=== PATIENT | female | born 1975 | race Two or more races ===

== ENCOUNTER 2017-04-10 22:02 | Emergency (ER) | payer MEDICAID ==
[~2017-04-10] VITALS: Ht 162.6 cm; Wt 108.0 kg
[2017-04-10] MEDS ORDERED: NKM (22:14)
[2017-04-10] MEDS ORDERED: Ketorolac 30mg Inj IV ONE (22:30)
[2017-04-10 22:35] VITALS: BP 154/77
[2017-04-10 22:36] LABS: APPEARANCE,URINE SLIGHTLY CLOUDY; KETONES,URINE NEGATIVE (NEGATIVE); LEUKOCYTE ESTERASE ,URINE 3+ (NEGATIVE); NITRITE,URINE NEGATIVE (NEGATIVE); PH,URINE 5 (4.5-8.0); PROTEIN,URINE NEGATIVE (NEGATIVE); UROBILINOGEN,URINE NORMAL MG/DL (0.0-1.0)
[2017-04-10 22:43] LABS: WBC,URINE TNTC /HPF (0 - 2)
[2017-04-10 22:44] LABS: BACTERIA,URINE MODERATE /HPF; SQUAMOUS EPITHELIAL CELL,UR MODERATE /LPF (NONE/OCC)
[2017-04-10 23:12] LABS: EOSINOPHILS % (AUTO) 2.8 % (0.0-3.0); LYMPHOCYTES % (AUTO) 35.1 % (20.0-45.0); MEAN CORPUSCULAR HGB CONC 34.3 G/DL (32.0-36.0); MEAN CORPUSCULAR VOLUME 90 FL (80-99); MEAN PLATELET VOLUME 7.2 FL (6.5-10.1); NEUTROPHILS % (AUTO) 55.1 % (45.0-75.0); PLATELET COUNT 369 K/UL (150-450); RED BLOOD COUNT 4.13 M/UL (4.20-5.40); RED CELL DISTRIBUTION WIDTH 12.3 % (11.6-14.8); WHITE BLOOD COUNT 8.1 K/UL (4.8-10.8)
[2017-04-10] MEDS ORDERED: Morphine Sulfate 4mg/ml Inj IVP ONE (23:30)
[2017-04-10] MEDS ORDERED: cefTRIAXone 1 GM in NS 55 ML IVPB ONE (23:30)
[2017-04-10 23:33] LABS: ANION GAP 16 (5-15); CALCIUM 9.3 mg/dL (8.6-10.2); CARBON DIOXIDE 23 mEQ/L (20-30); CHLORIDE 102 mEQ/L (98-107); CREATININE 0.8 mg/dL (0.5-0.9); GLOMERULAR FILTRATION RATE > 60 mL/min (>60); HEMOLYSIS 3; SODIUM 141 mEQ/L (135-145)
--- NOTE | 2017-04-10 23:41 | Emergency Room Report ---
History of Present Illness General Chief Complaint: Headache Source: Patient Present Illness HPI Is a 41-year-old female with no past medical history. She presents with chief complaint of left-sided headache for the last 4-5 days. Now with numbness to right facial area. No nausea no vomiting. No photophobia. No edema good headache. No focal deficit. [id number]-ijewduv medication not helping. Allergies: Coded Allergies: No Known Allergies (Unverified , 04/10/17) Patient History Past Medical History: none, see triage record, old chart reviewed Past Surgical History: none Pertinent Family History: none Social History: Denies: smoking Last Menstrual Period: 1 week ago Now: No Immunizations: other Reviewed Nursing Documentation: PMH: Agreed, PSxH: Agreed Nursing Documentation-PMH Past Medical History: No Stated History Review of Systems Eye: Denies: blurred vision, eye pain ENT: Denies: ear pain, nose congestion, throat swelling Respiratory: Denies: cough, shortness of breath Cardiovascular: Denies: chest pain, palpitations Gastrointestinal: Denies: abdominal pain, diarrhea, nausea, vomiting Musculoskeletal: Denies: back pain, joint pain Skin: Denies: rash Neurological: Reports: headache, Denies: numbness Endocrine: Denies: increased thirst, increased urine Hematologic/Lymphatic: Denies: easy bruising All Other Systems: negative except mentioned in HPI Physical Exam Vital Signs Date Time Temp Pulse Resp B/P Pulse Ox O2 Delivery O2 Flow Rate FiO2 04/10/17 22:05 98.1 91 18 174/108 98 Room Air vitals with hypertension Sp02 EP Interpretation: reviewed, normal General Appearance: well appearing, no apparent distress, alert Head: normocephalic, atraumatic Eyes: bilateral eye EOMI, bilateral eye PERRL, bilateral eye other - Funduscopic exam no papilledema ENT: hearing grossly normal, normal pharynx Neck: full range of motion, supple, no meningismus Respiratory: chest non-tender, lungs clear, normal breath sounds Cardiovascular #1: regular rate, rhythm, no murmur Gastrointestinal: normal bowel sounds, non tender, no mass, no organomegaly, no bruit, non-distended Musculoskeletal: back normal, gait/station normal, normal range of motion Psychiatric: mood/affect normal Skin: warm/dry Medical Decision Making Diagnostic Impression: Primary Impression: Headache Qualified Codes: R51 - Headache Additional Impression: UTI (urinary tract infection) ER Course Patient presents with headache. No evidence of TIA or CVA. No evidence of bleed. Clinically, no evidence of pseudotumor cerebri. She felt better now. Blood pressure normalized. CT done because this is her first major headache and she has some neurological complaints. We'll discharge home. Lab Results Impression labs normal Rhythm Strip Diag. Results Rhythm Strip Time: 23:41 EP Interpretation: yes Rate: 67 Rhythm: NSR CT/MRI/US Diagnostic Results CT/MRI/US Diagnostic Results : Imaging Test Ordered: CT head Impression negative per radiologist Last Vital Signs Date Time Temp Pulse Resp B/P Pulse Ox O2 Delivery O2 Flow Rate FiO2 04/10/17 23:21 98.1 04/10/17 22:35 71 14 154/77 100 Room Air Status: improved Disposition: HOME, SELF-CARE Condition: Stable Scripts Cephalexin* (KEFLEX*) 500 Mg Capsule 500 MG ORAL TID, #21 CAP 0 Refills Prov: MORRIS MOSER M.D. 04/11/17 Hydrocodone/Acetaminophen 5-325* (HYDROCODONE/ACETAMINOPHEN 5-325*) 1 Each Tablet 1 TAB ORAL Q6H Y for For Pain, #15 TAB 0 Refills Prov: MORRIS MOSER M.D. 04/11/17 Referrals: NOT CHOSEN IPA/,REFERRING (PCP) Patient Instructions: General Headache Without Cause Additional Instructions: followup with your DrMaria Isabel in 7 days. Return if symptom worsen. MORRIS MOSER M.D. Apr 10, 2017 23:41
[2017-04-11] MEDS ORDERED: HYDROCODON-ACE1 EA15 ORAL (00:08)
[2017-04-11] MEDS ORDERED: KEFLEX500 MG ORAL (00:08)
[2017-04-11 00:09] VITALS: BP 114/61
[2017-04-11 01:00] VITALS: BP 114/61
--- NOTE | 2017-04-11 10:52 | Diagnostic Imaging Report ---
Indication: Headache Technique: Contiguous 5 mm thick transaxial imaging of the head obtained in a Siemens Sensation [address] scanner. Soft tissue and bone windows generated. Total Dose length Product (DLP): [address] Dose Index Volume (CTDIvol): 70.38 mGy Comparison: none Findings: The size and configuration of the cortical sulci, basal cisterns, and ventricles are within normal limits for age. There is no mass effect, midline shift, or edema identified. There is no evidence of acute hemorrhage or abnormal intra-axial or extra-axial fluid collections. The bones and soft tissues are unremarkable. Impression: No mass effect, edema or acute bleed. The CT scanner at [facility] is accredited by the [employer] and the scans are performed using dose optimization techniques as appropriate to a performed exam including Automatic Exposure control.
== END 2017-04-11 01:00 | disposition home or self-care (01) ==
LOC: EMR 22:20
DX: R51 Headache (principal); N39.0 Urinary tract infection, site not specified
CPT/HCPCS: 36415; 70450; 80048; 81001; 81025; 85025; 87086; 96374; 96375; 99284; J0696; J1885; J2270; J2405

== ENCOUNTER 2017-04-20 20:26 | Inpatient (IN) | payer MEDICAID ==
[~2017-04-20] VITALS: Ht 162.6 cm; Wt 106.1 kg
[~2017-04-20 20:26] MED LIST: HYDROCODON-ACE1 EA15 ORAL; KEFLEX500 MG ORAL; NKM
[2017-04-20] MEDS ORDERED: NKM (20:35)
--- NOTE | 2017-04-20 20:54 | Emergency Room Report ---
History of Present Illness General Chief Complaint: Abdominal Pain Source: Patient Present Illness HPI Patient presents with right upper quadrant pain. This began 20 minutes before presenting here. She's never had this pain before. It's 10/10 and constant. It radiates toward her back. She denies any vomiting or nausea. Denies any change in her bowels. She denies fever, upper respiratory symptoms, cough, pleuritic chest pain. No known family history of gall stones or renal stones. Allergies: Coded Allergies: No Known Allergies (Unverified , 04/10/17) Patient History Past Medical History: see triage record Social History: Denies: smoking Social History Narrative Reviewed Nursing Documentation: PMH: Agreed, PSxH: Agreed Nursing Documentation-PMH Past Medical History: No Stated History Review of Systems All Other Systems: negative except mentioned in HPI Physical Exam Vital Signs Date Time Temp Pulse Resp B/P Pulse Ox O2 Delivery O2 Flow Rate FiO2 04/20/17 20:31 98.2 142 22 150/103 95 Room Air Sp02 EP Interpretation: reviewed, normal General Appearance: well appearing, GCS 15, mild distress Head: normocephalic Eyes: bilateral eye PERRL, bilateral eye normal inspection ENT: moist mucus membranes Neck: supple Respiratory: lungs clear, normal breath sounds Cardiovascular #1: regular rate, rhythm Cardiovascular #2: 2+ radial (R) Gastrointestinal: normal inspection, normal bowel sounds, no mass, non- distended, no rebound, guarding, tenderness - Upper quadrant, overweight Musculoskeletal: back normal, gait/station normal, normal range of motion Neurologic: alert, oriented x3, grossly normal Psychiatric: mood/affect normal - but in pain Skin: normal inspection, warm/dry Medical Decision Making Diagnostic Impression: Primary Impression: Cholecystitis ER Course The patient presents with severe right upper quadrant pain. She had this pain before. Differential includes gallstones, ulcer, gastritis, pancreatitis amongst others. She's in distress at this time and needs a emergent evaluation. This will be undertaken with labs and ultrasound. In addition she' ll be treated with IV hydration and analgesia. After the first dose of morphine her pain decreased to 7. The second dose was given. Labs are significant for leukocytosis. Ultrasound shows gallstones. Antibiotics are begun. After the second dose of morphine she says the pain is down to 5 hours she still has guarding without rebound or. The patient is to be at admitted for observation and possible surgery. Dr. Burrell was contacted and agreed to consult. Admit med Dr. Vee. Laboratory Tests Test 04/20/17 20:51 04/20/17 21:05 Urine Color Pale yellow Urine Appearance Clear Urine pH 5 (4.5-8.0) Urine Specific [place] 1.015 (1.005-1.035) Urine Protein Negative (NEGATIVE) Urine Glucose (UA) Negative (NEGATIVE) Urine Ketones Negative (NEGATIVE) Urine Occult Blood 3+ (NEGATIVE) H Urine Nitrite Negative (NEGATIVE) Urine Bilirubin Negative (NEGATIVE) Urine Urobilinogen Normal MG/DL (0.0-1.0) Urine Leukocyte Esterase 2+ (NEGATIVE) H Urine RBC 0-2 /HPF (0 - 2) Urine WBC 0-2 /HPF (0 - 2) Urine Squamous Epithelial Cells Moderate /LPF (NONE/OCC) H Urine Bacteria Few /HPF (NONE) Urine HCG, Qualitative Negative White Blood Count 14.4 K/UL (4.8-10.8) H Red Blood Count 4.71 M/UL (4.20-5.40) Hemoglobin 14.4 G/DL (12.0-16.0) Hematocrit 42.3 % (37.0-47.0) Mean Corpuscular Volume 90 FL (80-99) Mean Corpuscular Hemoglobin 30.6 PG (27.0-31.0) Mean Corpuscular Hemoglobin Concent 34.0 G/DL (32.0-36.0) Red Cell Distribution Width 11.9 % (11.6-14.8) Platelet Count 397 K/UL (150-450) Mean Platelet Volume 7.6 FL (6.5-10.1) Neutrophils (%) (Auto) 59.5 % (45.0-75.0) Lymphocytes (%) (Auto) 33.2 % (20.0-45.0) Monocytes (%) (Auto) 4.8 % (1.0-10.0) Eosinophils (%) (Auto) 1.7 % (0.0-3.0) Basophils (%) (Auto) 0.8 % (0.0-2.0) Prothrombin Time 9.5 SEC (9.30-11.50) Prothrombin Time INR 0.9 (0.9-1.1) PTT 26 SEC (23-33) Sodium Level 139 mEQ/L (135-145) Potassium Level 3.6 mEQ/L (3.4-4.9) Chloride Level 102 mEQ/L (98-107) Carbon Dioxide Level 23 mEQ/L (20-30) Anion Gap 14 (5-15) Blood Urea Nitrogen 10 mg/dL (7-23) Creatinine 0.9 mg/dL (0.5-0.9) Estimate Glomerular Filtration Rate > 60 mL/min (>60) Glucose Level 123 mg/dL (74-106) H Calcium Level 9.3 mg/dL (8.6-10.2) Total Bilirubin 0.2 mg/dL (0.0-1.2) Aspartate Amino Transferase (AST) 17 U/L (5-40) Alanine Aminotransferase (ALT) 17 U/L (3-33) Alkaline Phosphatase 78 U/L (35-104) Total Protein 7.8 g/dL (6.6-8.7) Albumin 4.4 g/dL (3.5-5.2) Globulin 3.4 g/dL Albumin/Globulin Ratio 1.2 (1.0-2.7) Lipase 28 U/L (< 60) CT/MRI/US Diagnostic Results CT/MRI/US Diagnostic Results : Imaging Test Ordered: u/s abdomen Impression gallstones Status: improved Disposition: ADMITTED INPATIENT Condition: Serious Quinn Dodson M.D. Apr 20, 2017 20:54
[2017-04-20] MEDS ORDERED: Morphine Sulfate 4mg/ml Inj IVP ONE ×2 (21:00→21:45)
[2017-04-20 21:11] VITALS: BP 150/101
[2017-04-20 21:27] LABS: BASOPHILS % (AUTO) 0.8 % (0.0-2.0); EOSINOPHILS % (AUTO) 1.7 % (0.0-3.0); LYMPHOCYTES % (AUTO) 33.2 % (20.0-45.0); MEAN CORPUSCULAR HEMOGLOBIN 30.6 PG (27.0-31.0); MEAN CORPUSCULAR VOLUME 90 FL (80-99); MEAN PLATELET VOLUME 7.6 FL (6.5-10.1); MONOCYTES % (AUTO) 4.8 % (1.0-10.0); NEUTROPHILS % (AUTO) 59.5 % (45.0-75.0); PLATELET COUNT 397 K/UL (150-450); RED BLOOD COUNT 4.71 M/UL (4.20-5.40); RED CELL DISTRIBUTION WIDTH 11.9 % (11.6-14.8); WHITE BLOOD COUNT 14.4 K/UL (4.8-10.8)
[2017-04-20 21:32] LABS: APPEARANCE,URINE CLEAR; KETONES,URINE NEGATIVE (NEGATIVE); LEUKOCYTE ESTERASE ,URINE 2+ (NEGATIVE); NITRITE,URINE NEGATIVE (NEGATIVE); PH,URINE 5 (4.5-8.0); PROTEIN,URINE NEGATIVE (NEGATIVE); UROBILINOGEN,URINE NORMAL MG/DL (0.0-1.0)
[2017-04-20 21:41] LABS: BACTERIA,URINE FEW /HPF; RBC,URINE 0-2 /HPF (0 - 2); SQUAMOUS EPITHELIAL CELL,UR MODERATE /LPF (NONE/OCC); WBC,URINE 0-2 /HPF (0 - 2)
[2017-04-20 21:45] LABS: INR 0.9 (0.9-1.1); PROTHROMBIN TIME 9.5 SEC (9.30-11.50)
[2017-04-20 22:06] LABS: ALANINE AMINOTRANSFERASE 17 U/L (3-33); ALBUMIN/GLOBULIN RATIO 1.2 (1.0-2.7); ANION GAP 14 (5-15); ASPARTATE AMINO TRANSFERASE 17 U/L (5-40); CALCIUM 9.3 mg/dL (8.6-10.2); CARBON DIOXIDE 23 mEQ/L (20-30); CHLORIDE 102 mEQ/L (98-107); CREATININE 0.9 mg/dL (0.5-0.9); GLOMERULAR FILTRATION RATE > 60 mL/min (>60); HEMOLYSIS 3; LIPASE 28 U/L (< 60); POTASSIUM 3.6 mEQ/L (3.4-4.9); SODIUM 139 mEQ/L (135-145); TOTAL PROTEIN 7.8 g/dL (6.6-8.7)
[2017-04-20 22:26] VITALS: BP 128/68
[2017-04-20] MEDS ORDERED: Cefepime 1gm vial ONE (22:51)
[2017-04-20] MEDS ORDERED: metroNIDAZOLE 500mg 100 ML IVPB ONE (23:00)
[2017-04-20] MEDS ORDERED: Cefepime HCl 1 GM in D5W 55 ML IVPB ONE (23:00)
[2017-04-20 23:26] VITALS: BP 118/64
[2017-04-21 00:21] VITALS: BP 112/64
[2017-04-21] MEDS ORDERED: Acetaminophen 650 MG SUPP RECTAL PRN (00:45)
[2017-04-21] MEDS: Morphine Sulfate 4mg/ml Inj IVP PRN ×2 (01:48→07:54)
[2017-04-21 04:00] VITALS: BP 128/67
[2017-04-21 08:00] VITALS: BP 144/39
--- NOTE | 2017-04-21 09:15 | Diagnostic Imaging Report ---
Indication: Right upper quadrant pain Technique: Ultrasound of the abdomen. Comparison: None Findings: The pancreas is incompletely visualized. Visualized portions are unremarkable. Liver measures 17.3 cm with slight increased echogenicity. No focal liver lesions are identified. Visualized portions of the main portal vein and the hepatic veins are grossly unremarkable although incompletely evaluated. Gallbladder sludge and stones are seen. Gallbladder wall thickness is within normal limits. Sonographic Rebolledo's is positive. Common bile duct measures 6 mm. Bilateral kidneys demonstrate normal echogenicity. No focal renal lesions are seen. There is no hydronephrosis. No echogenic renal stones are identified. The spleen is normal in size and echogenicity. The visualized aorta is normal in caliber. Visualized portions of the inferior vena cava are unremarkable. Impression: Technically limited examination. Multiple gallstones and gallbladder sludge with positive sonographic Rebolledo sign. No gallbladder wall thickening or pericholecystic fluid. Clinical correlation recommended for cholecystitis. HIDA scan may be obtained for further evaluation as indicated. Mild hepatomegaly with increased echogenicity suggestive of fatty infiltration/hepatocellular disease. Clinical correlation recommended.
[2017-04-21 09:16] LABS: ALANINE AMINOTRANSFERASE 13 U/L (3-33); ALBUMIN/GLOBULIN RATIO 1.2 (1.0-2.7); ANION GAP 10 (5-15); ASPARTATE AMINO TRANSFERASE 12 U/L (5-40); CALCIUM 8.5 mg/dL (8.6-10.2); CARBON DIOXIDE 22 mEQ/L (20-30); CHLORIDE 107 mEQ/L (98-107); CREATININE 0.7 mg/dL (0.5-0.9); GLOMERULAR FILTRATION RATE > 60 mL/min (>60); HEMOLYSIS 2; POTASSIUM 4.2 mEQ/L (3.4-4.9); SODIUM 139 mEQ/L (135-145); TOTAL PROTEIN 6.3 g/dL (6.6-8.7)
[2017-04-21 09:26] LABS: BASOPHILS % (AUTO) 0.8 % (0.0-2.0); EOSINOPHILS % (AUTO) 2.1 % (0.0-3.0); LYMPHOCYTES % (AUTO) 29.5 % (20.0-45.0); MEAN CORPUSCULAR HEMOGLOBIN 31.1 PG (27.0-31.0); MEAN CORPUSCULAR VOLUME 89 FL (80-99); MEAN PLATELET VOLUME 7.7 FL (6.5-10.1); MONOCYTES % (AUTO) 7.4 % (1.0-10.0); NEUTROPHILS % (AUTO) 60.2 % (45.0-75.0); PLATELET COUNT 318 K/UL (150-450); RED CELL DISTRIBUTION WIDTH 11.9 % (11.6-14.8); WHITE BLOOD COUNT 9.6 K/UL (4.8-10.8)
--- NOTE | 2017-04-21 09:30 | History & Physical ---
History and Physical History & Physicial Patient presents with right upper quadrant pain and underwent an ultrasound with notable stones. She notes acute abdominal pain. It radiates toward her back. She denies any vomiting or nausea. Denies any change in her bowels. She denies fever, or diarrhea PMH negative MEDS/ALLERGIES noted ROS noted PHYSICAL WDWN NAD clear breath sounds bilaterally without rhonchi or wheeze [id number] without MRG tender RUQ no CCE nonfocal Laboratory Tests Test 04/20/17 20:51 04/20/17 21:05 04/21/17 08:10 Urine Color Pale yellow Urine Appearance Clear Urine pH 5 (4.5-8.0) Urine Specific [place] 1.015 (1.005-1.035) Urine Protein Negative (NEGATIVE) Urine Glucose (UA) Negative (NEGATIVE) Urine Ketones Negative (NEGATIVE) Urine Occult Blood 3+ (NEGATIVE) H Urine Nitrite Negative (NEGATIVE) Urine Bilirubin Negative (NEGATIVE) Urine Urobilinogen Normal MG/DL (0.0-1.0) Urine Leukocyte Esterase 2+ (NEGATIVE) H Urine RBC 0-2 /HPF (0 - 2) Urine WBC 0-2 /HPF (0 - 2) Urine Squamous Epithelial Cells Moderate /LPF (NONE/OCC) H Urine Bacteria Few /HPF (NONE) Urine HCG, Qualitative Negative White Blood Count 14.4 K/UL (4.8-10.8) H 9.6 K/UL (4.8-10.8) Red Blood Count 4.71 M/UL (4.20-5.40) 4.00 M/UL (4.20-5.40) L Hemoglobin 14.4 G/DL (12.0-16.0) 12.4 G/DL (12.0-16.0) Hematocrit 42.3 % (37.0-47.0) 35.5 % (37.0-47.0) L Mean Corpuscular Volume 90 FL (80-99) 89 FL (80-99) Mean Corpuscular Hemoglobin 30.6 PG (27.0-31.0) 31.1 PG (27.0-31.0) H Mean Corpuscular Hemoglobin Concent 34.0 G/DL (32.0-36.0) 35.0 G/DL (32.0-36.0) Red Cell Distribution Width 11.9 % (11.6-14.8) 11.9 % (11.6-14.8) Platelet Count 397 K/UL (150-450) 318 K/UL (150-450) Mean Platelet Volume 7.6 FL (6.5-10.1) 7.7 FL (6.5-10.1) Neutrophils (%) (Auto) 59.5 % (45.0-75.0) 60.2 % (45.0-75.0) Lymphocytes (%) (Auto) 33.2 % (20.0-45.0) 29.5 % (20.0-45.0) Monocytes (%) (Auto) 4.8 % (1.0-10.0) 7.4 % (1.0-10.0) Eosinophils (%) (Auto) 1.7 % (0.0-3.0) 2.1 % (0.0-3.0) Basophils (%) (Auto) 0.8 % (0.0-2.0) 0.8 % (0.0-2.0) Prothrombin Time 9.5 SEC (9.30-11.50) Prothromb Time International Ratio 0.9 (0.9-1.1) Activated Partial Thromboplast Time 26 SEC (23-33) Sodium Level 139 mEQ/L (135-145) 139 mEQ/L (135-145) Potassium Level 3.6 mEQ/L (3.4-4.9) 4.2 mEQ/L (3.4-4.9) Chloride Level 102 mEQ/L (98-107) 107 mEQ/L (98-107) Carbon Dioxide Level 23 mEQ/L (20-30) 22 mEQ/L (20-30) Anion Gap 14 (5-15) 10 (5-15) Blood Urea Nitrogen 10 mg/dL (7-23) 9 mg/dL (7-23) Creatinine 0.9 mg/dL (0.5-0.9) 0.7 mg/dL (0.5-0.9) Estimat Glomerular Filtration Rate > 60 mL/min (>60) > 60 mL/min (>60) Glucose Level 123 mg/dL (74-106) H 100 mg/dL (74-106) Calcium Level 9.3 mg/dL (8.6-10.2) 8.5 mg/dL (8.6-10.2) L Total Bilirubin 0.2 mg/dL (0.0-1.2) < 0.2 mg/dL (0.0-1.2) Aspartate Amino Transf (AST/SGOT) 17 U/L (5-40) 12 U/L (5-40) Alanine Aminotransferase (ALT/SGPT) 17 U/L (3-33) 13 U/L (3-33) Alkaline Phosphatase 78 U/L (35-104) 66 U/L (35-104) Total Protein 7.8 g/dL (6.6-8.7) 6.3 g/dL (6.6-8.7) L Albumin 4.4 g/dL (3.5-5.2) 3.5 g/dL (3.5-5.2) Globulin 3.4 g/dL 2.8 g/dL Albumin/Globulin Ratio 1.2 (1.0-2.7) 1.2 (1.0-2.7) Lipase 28 U/L (< 60) IMPRESSION gallstones possible cholecystitis abdominal pain PLAN NPO surgical evaluation IV hydration IV antibiotics HOSEA Wang Apr 21, 2017 09:30
[2017-04-21] MEDS: Pantoprazole Inj IVP SCH (10:52)
[2017-04-21 12:00] VITALS: BP 154/78
--- NOTE | 2017-04-21 12:04 | General Progress Note ---
Progress Note Progress Note Chart reviewed,pt examined. Impression: abdominal pain, cholelithiasis, possible cholecystitis vs biliary colic. We will order a stat HIDA scan. Tylor Burrell MD Apr 21, 2017 12:04
[2017-04-21] MEDS: Piperacillin/Tazobactam 3.375 GM in D5W 110 ML IVPB SCH ×2 (14:25→21:58)
[2017-04-21 16:00] VITALS: BP 144/83
--- NOTE | 2017-04-21 17:15 | Consultation ---
DATE OF CONSULTATION: 04/21/2017 SURGICAL CONSULTATION REASON FOR CONSULTATION: Abdominal pain, cholelithiasis. HISTORY OF PRESENT ILLNESS: This 41-year-old 1 para 1 female developed the onset of severe right upper abdominal pain yesterday. The pain was accompanied by anorexia. The pain radiated towards the back. There are no symptoms of nausea or vomiting. She denied any problems with diarrhea. She had a normal stool yesterday at noon. PAST MEDICAL HISTORY: Previous surgeries, section five years ago. MEDICATIONS: None. ALLERGIES: None known. SOCIAL HISTORY: Tobacco, none. Alcohol, none. Occupation, the patient is currently unemployed. 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 FAMILY HISTORY: Negative for diabetes, heart disease, or malignancy. REVIEW OF SYSTEMS: Essentially negative. She has occasional headaches. PHYSICAL EXAMINATION: GENERAL: The patient is an obese female, complaining of abdominal pain. VITAL SIGNS: Temperature 98.1 degrees, blood pressure 128/67, pulse 68, and respirations 19. HEENT: Normocephalic. Pupils are equal and reactive to light. There was no scleral icterus. NECK: Supple without adenopathy. LUNGS: Clear. HEART: Regular rhythm. ABDOMEN: Abdomen was protuberant. There is some tenderness with guarding in the right upper quadrant. There were no palpable masses. There is a healed Pfannenstiel scar. EXTREMITIES: No clubbing, cyanosis, or edema. LABORATORY AND DIAGNOSTIC DATA: CBC today shows a white blood count of 9600, hemoglobin 12.4 grams percent, hematocrit 35.5% and platelet count 318,000. Clinical chemistry showed a sodium of 139, potassium 4.2, chloride 107, bicarbonate 22, BUN 9, creatinine 0.7, and glucose 100. Liver panel shows a total bilirubin of less than 0.02. Normal SGOT at 13, normal SGPT of 12 and normal alkaline phosphatase of 66. Lipase was normal at 28 yesterday. An abdominal ultrasound showed gallbladder sludge and stones. The gallbladder wall was within normal limits. The common duct measures 6 mm. IMPRESSION: Cholelithiasis, probable biliary colic. PLAN: We will need to obtain a HIDA scan to see if the cystic duct is obstructed. We will leave her NPO today and continue on IV hydration. We will switch her analgesics from morphine to Dilaudid 2 mg q.3 h. Tylor Burrell M.D. DR: BUDDY JOB#: [id number] CC:
[2017-04-21 21:00] VITALS: BP 137/82
[2017-04-22 04:00] VITALS: BP 137/84
[2017-04-22] MEDS: Piperacillin/Tazobactam 3.375 GM in D5W 110 ML IVPB SCH (05:01)
[2017-04-22] MEDS: Pantoprazole Inj IVP SCH (08:17)
[2017-04-22 08:30] VITALS: BP 125/72
--- NOTE | 2017-04-22 09:49 | Diagnostic Imaging Report ---
Indication: Right upper quadrant pain Technique: HIDA scan was performed with 5.8 mCi of technetium 99M Choletec. Planar imaging was performed for 90 minutes. Findings: Liver uptake is demonstrated. Radiotracer is seen within the bile ducts by 10 minutes and within the gallbladder by 13 minutes. Small bowel activity is also present. Impression: Gallbladder uptake suggestive of cystic duct patency and no definitive evidence of acute cholecystitis.
--- NOTE | 2017-04-22 11:35 | General Progress Note ---
Assessment/Plan Assessment/Plan IMPRESSION gallstones no cholecystitis abdominal pain PLAN clears dc antibiotics d/w surgery, dc home with outpatient follow up for elective concepción bland diet discussed Subjective Allergies: Coded Allergies: No Known Allergies (Unverified , 04/10/17) Subjective improved d/w surgery cleared for dc Objective Last 24 Hour Vital Signs Date Time Temp Pulse Resp B/P Pulse Ox O2 Delivery O2 Flow Rate FiO2 04/22/17 08:30 98.2 80 20 125/72 96 Room Air 04/22/17 06:32 98.1 04/22/17 04:00 98.1 75 18 137/84 96 Room Air 04/21/17 21:00 97.5 77 18 137/82 97 Room Air 04/21/17 16:00 97.9 93 20 144/83 96 Room Air 04/21/17 12:00 98.6 91 20 154/78 97 Room Air Intake and Output 04/21/17 04/22/17 19:00 07:00 Intake Total 765.0 ml Balance 765.0 ml Intake Oral 0 ml IV Total 765.0 ml # Voids 2 3 Height (Feet): 5 Height (Inches): 4.00 Weight (Pounds): 234 Objective WDWN NAD clear breath sounds bilaterally without rhonchi or wheeze [id number] without MRG NABS minimal tenderness RUQ no CCE nonfocal HOSEA DEL TORO Apr 22, 2017 11:35
[2017-04-22] MEDS ORDERED: Norco 5mg/325mg tab ORAL PRN (11:45)
[2017-04-22 12:00] VITALS: BP 120/63
[2017-04-22] MEDS ORDERED: NORCO 5-325 TA1 EAC1 ORAL (12:03)
[2017-04-22] MEDS ORDERED: BENTYL10 MG ORAL (12:04)
--- NOTE | 2017-04-22 12:08 | General Progress Note ---
Progress Note Progress Note Afebrile. Pt is feeling better, denies N or V. Abdomen is soft. The HIDA scan did visualize the gallbladder. Her clinical course is consistent with biliary colic. We will try a low fat diet and Bentyl. We will discharge her today. Pt was told to adhere to a low fat diet and to consult her PMD for referral to a surgeon to begin the process of obtaining a TAR for a cholecystectomy. Tylor Burrell MD Apr 22, 2017 12:08
--- NOTE | 2017-04-23 13:48 | Discharge Summary ---
Discharge Summary Hospital Course Date of Admission Apr 20, 2017 at 23:02 Date of Discharge Apr 22, 2017 at 15:20 Admitting Diagnosis cholecystitis HPI Luda Fraire is a 41 year old female who was admitted on Apr 20, 2017 at 23:02 for Cholecystitis Hospital Course dc summary #[id number] Discharge Medications Continued Medications: Dicyclomine Hcl* (Bentyl*) 10 Mg Capsule 10 MG ORAL FOUR TIMES A DAY, #40 CAP Hydrocodone Bit/Acetaminophen 5-325* ([place] 5-325 Tablet*) 1 Each Tablet 1 TAB ORAL Q4H PRN for For Pain, #40 TAB Discontinued Medications: Cephalexin* (Keflex*) 500 Mg Capsule 500 MG ORAL TID, #21 CAP 0 Refills Hydrocodone/Acetaminophen 5-325* (Hydrocodone/Acetaminophen 5-325*) 1 Each Tablet 1 TAB ORAL Q6H PRN for For Pain, #15 TAB 0 Refills Discharge Condition Upon Discharge: stable Discharge Disposition Patient was discharged to Home (01) Discharge Diagnoses: Discharge Instructions Discharge Instructions Special Instructions I have been assigned to complete a D/C Summary on this account. I was not involved in the patient management Ana España NP (Vanchtein) Apr 23, 2017 13:48
--- NOTE | 2017-04-24 00:01 | Discharge Summary 2 SIG ---
DATE OF ADMISSION: 04/20/2017 DATE OF DISCHARGE: 04/22/2017 REASON FOR ADMISSION: 41-year-old female presented to emergency room with complaint of right upper quadrant pain. The pain was 10/10, constant with radiation to the back. She denied vomiting or nausea. She denied any change in her bowel movement. She denied fever, chills, cough, or pleuritic chest pain. No known history of gallstone or renal stones in the past. Workup in the emergency room revealed that the patient was afebrile, tachycardic with heart rate -142, tachypneic with respiratory rate - 22 and blood pressure - 150/103. WBC - 14.4. Urinalysis revealed no pyuria and few bacteria and +2 leukocyte esterase. Lipase -28. LFT within normal limits. Abdominal ultrasound revealed multiply gallstones and gallbladder sludge with positive sonographic Rebolledo sign. No gallbladder wall thickening or pericholecystic fluid noted. In the emergency department, the patient was started on IV fluids and empiric antibiotics. The patient was admitted for further management to rule out acute cholecystitis.. ADMITTING DIAGNOSES: 1. Gallstones, 2. Possible acute cholecystitis versus biliary colic. 3. Abdominal pain. HOSPITAL STAY: The patient was admitted. The patient was kept NPO. The patient was started on IV fluids and empiric antibiotics. Surgery evaluation was requested. Pain management was provided. HIDA scan was ordered. Antiemetic provided as needed. HIDA scan subsequently was done the next day and revealed patent cystic duct. No evidence of acute cholecystitis. Surgery closely followed the patient. According to the Surgeon, the patient had biliary colic. The patient will need an elective cholecystectomy as an outpatient. This information was explained in detail to the patient by the surgeon . The patient was started on clear liquid diet. Patient was able to tolerate diet. Pain was addressed, managed and controlled. Leukocytosis resolved the next day. Laboratory work was stable. Blood pressure normalized as pain was controlled. The patient was stable for discharge home and follow up with the Surgeon for outpatient elective surgery. DISCHARGE DIAGNOSES: 1. Cholelithiasis. 2. Biliary colic. 3. Abdominal pain ( due to biliary colic). DISCHARGE MEDICATIONS: See medication reconciliation list. DISCHARGE INSTRUCTIONS: The patient was discharged home. Follow up with Surgeon for outpatient elective cholecystectomy. Yunier Vee M.D. I have been assigned to dictate discharge summary on this account and I was not involved in the patient's management. Ana España (Vanchtein) N.PMaria Isabel DR: LEBRON JOB#: [id number] CC: JEAN
== END 2017-04-22 15:20 | disposition home or self-care (01) ==
LOC: EMR 20:50 → 3E 23:02 → EDBEDREQ 23:24
DX: K80.70 Calculus of gallbladder and bile duct without cholecystitis without obstruction (principal); Z68.41 Body mass index [BMI] 40.0-44.9, adult; E66.9 Obesity, unspecified
CPT/HCPCS: 36415; 76700; 78266; 80053; 81003; 81025; 83690; 85025; 85610; 85730; J2405

== ENCOUNTER 2019-12-07 17:49 | Emergency (ER) | payer MEDICAID ==
[~2019-12-07] VITALS: Ht 162.6 cm; Wt 86.2 kg
[~2019-12-07 17:49] MED LIST changes: +AUGMENTIN 875-1 EAC1 ORAL; +BENTYL10 MG ORAL; +NORCO 5-325 TA1 EAC1 ORAL; +ONDANSETRON ODT4 MG BC
[2019-12-07] MEDS ORDERED: DOCUSATE SODIU100 M2 ORAL (17:59)
[2019-12-07] MEDS ORDERED: ACETAMINOPHEN-1 EAC1 ORAL (17:59)
[2019-12-07 18:05] VITALS: BP 157/57
--- NOTE | 2019-12-07 18:05 | NUR ---
ED Nurse Note: Pt from home walked in due to lower abd. pain with nausea since yesterday. Denies diarrhea or constipation. Last BM was yesterday.States pain is localized. AAO x4, ambulatory with non labored breathing.
[2019-12-07] MEDS ORDERED: Omnipaque-300 100ml vial INJ PRN (18:15)
--- NOTE | 2019-12-07 18:17 | Emergency Room Report ---
History of Present Illness General Chief Complaint: Abdominal Pain Source: Patient Present Illness HPI 44-year-old female history of gallbladder surgery presents with lower abdominal pain x1 day, no aggravating leaving factors severity is moderate, constant she feels a dull ache in the lower abdomen, no diarrhea she endorses nausea no vomiting no fevers no chills no chest pain or shortness of breath patient presents for evaluation Allergies: Coded Allergies: No Known Allergies (Unverified , 04/10/17) Patient History Past Medical History: see triage record Reviewed Nursing Documentation: PMH: Agreed; PSxH: Agreed Nursing Documentation-PMH Past Medical History: No Stated History Review of Systems All Other Systems: negative except mentioned in HPI Physical Exam Vital Signs Date Time Temp Pulse Resp B/P (MAP) Pulse Ox O2 Delivery O2 Flow Rate FiO2 12/07/19 17:55 98.1 83 16 158/83 (108) 98 Room Air Sp02 EP Interpretation: reviewed, normal General Appearance: well appearing, no apparent distress, alert Head: normocephalic, atraumatic Eyes: bilateral eye PERRL, bilateral eye EOMI ENT: uvula midline, moist mucus membranes Neck: supple, thyroid normal, supple/symm/no masses Respiratory: lungs clear, no respiratory distress, no retraction, no accessory muscle use Cardiovascular #1: normal peripheral pulses, regular rate, rhythm, no edema, no gallop, no murmur Gastrointestinal: soft, no guarding, no rebound, tenderness - Lower abdomen Musculoskeletal: normal inspection Neurologic: alert, oriented x3 Psychiatric: mood/affect normal Skin: no rash, warm/dry Medical Decision Making Diagnostic Impression: Primary Impression: Urinary tract infection Qualified Codes: N30.01 - Acute cystitis with hematuria ER Course 44-year-old female presents with lower suprapubic pain differential diagnosis includes UTI, diverticulitis, appendicitis, We will obtain labs, CT scan CT scan shows distended distended bladder without any acute pathology patient with positive UA patient given ceftriaxone Patient given strict return precautions follow-up with PCP will provide antibiotics as an outpatient Laboratory Tests Test 12/07/19 18:30 White Blood Count 11.0 K/UL (4.8-10.8) H Red Blood Count 4.44 M/UL (4.20-5.40) Hemoglobin 13.3 G/DL (12.0-16.0) Hematocrit 38.4 % (37.0-47.0) Mean Corpuscular Volume 86 FL (80-99) Mean Corpuscular Hemoglobin 30.0 PG (27.0-31.0) Mean Corpuscular Hemoglobin Concent 34.8 G/DL (32.0-36.0) Red Cell Distribution Width 12.3 % (11.6-14.8) Platelet Count 419 K/UL (150-450) Mean Platelet Volume 6.2 FL (6.5-10.1) L Neutrophils (%) (Auto) 66.0 % (45.0-75.0) Lymphocytes (%) (Auto) 27.9 % (20.0-45.0) Monocytes (%) (Auto) 4.1 % (1.0-10.0) Eosinophils (%) (Auto) 1.3 % (0.0-3.0) Basophils (%) (Auto) 0.7 % (0.0-2.0) Urine Color Pale yellow Urine Appearance Slightly cloudy Urine pH 7 (4.5-8.0) Urine Specific [place] 1.015 (1.005-1.035) Urine Protein Negative (NEGATIVE) Urine Glucose (UA) Negative (NEGATIVE) Urine Ketones Negative (NEGATIVE) Urine Blood 5+ (NEGATIVE) H Urine Nitrite Negative (NEGATIVE) Urine Bilirubin Negative (NEGATIVE) Urine Urobilinogen Normal MG/DL (0.0-1.0) Urine Leukocyte Esterase Negative (NEGATIVE) Urine RBC 20-30 /HPF (0 - 2) H Urine WBC 0-2 /HPF (0 - 2) Urine Squamous Epithelial Cells Many /LPF (NONE/OCC) H Urine Bacteria Moderate /HPF (NONE) H Urine HCG, Qualitative Negative (NEGATIVE) Sodium Level 145 MMOL/L (136-145) Potassium Level 3.8 MMOL/L (3.5-5.1) Chloride Level 105 MMOL/L (98-107) Carbon Dioxide Level 25 MMOL/L (21-32) Anion Gap 15 mmol/L (5-15) Blood Urea Nitrogen 13 mg/dL (7-18) Creatinine 0.8 MG/DL (0.55-1.30) Estimate Glomerular Filtration Rate > 60 mL/min (>60) Glucose Level 104 MG/DL (74-106) Calcium Level 9.5 MG/DL (8.5-10.1) Total Bilirubin 0.2 MG/DL (0.2-1.0) Aspartate Amino Transferase (AST) 18 U/L (15-37) Alanine Aminotransferase (ALT) 34 U/L (12-78) Alkaline Phosphatase 82 U/L (46-116) Troponin I 0.005 ng/mL (0.000-0.056) Total Protein 7.8 G/DL (6.4-8.2) Albumin 3.9 G/DL (3.4-5.0) Globulin 3.9 g/dL Albumin/Globulin Ratio 1.0 (1.0-2.7) Lipase 99 U/L (73-393) EKG Diagnostic Results EKG Time: 18:12 EP Interpretation: NSR, rate 84, QTc 444, no acute ST elevations, normal axis Rhythm Strip Diag. Results Rhythm Strip Time: 18:19 EP Interpretation: yes Rate: 86 Rhythm: NSR, no PVC's, no ectopy CT/MRI/US Diagnostic Results CT/MRI/US Diagnostic Results : Impression Procedure: CT Abdomen Pelvis w/Contrast CT ABDOMEN + PELVIS With Contrast: Status post cholecystectomy. Normal appendix. Distended urinary bladder IUD within the uterine cavity. Physiologic bilateral ovarian cysts L5-S1 vacuum disc phenomena and L5 limbus vertebral body.45 Dictated By: Daisy Meza M.D. Electronically Signed By: Signed Date/Time CC: Last Vital Signs Date Time Temp Pulse Resp B/P (MAP) Pulse Ox O2 Delivery O2 Flow Rate FiO2 12/07/19 17:55 98.1 83 16 158/83 (108) 98 Room Air Disposition: HOME, SELF-CARE Condition: Stable Scripts Cephalexin* (KEFLEX*) 500 Mg Tablet 500 MG ORAL EVERY 6 HOURS, #20 CAP Prov: Severo Weiner MD 12/07/19 Referrals: [facility]. [facility] Patient Instructions: Urinary Tract Infection, [id number] Additional Instructions: The patient was provided with discharge instructions, notified to follow-up with a primary care doctor and or specialist in the next 24-48 hours, and to return to the ED if they have worsening of their symptoms. Please note that this report is being documented using [employer] technology. This can lead to erroneous entry secondary to incorrect interpretation by the dictating instrument. Severo Weiner MD 1, 2020 18:17
[2019-12-07] MEDS ORDERED: Morphine Sulfate 4mg/ml Inj (IV USE ONLY) IVP ONE (18:30)
--- NOTE | 2019-12-07 18:35 | NUR ---
ED Nurse Note: Collected blood and urine specimen then sent to lab.
[2019-12-07 18:59] LABS: BASOPHILS % (AUTO) 0.7 % (0.0-2.0); EOSINOPHILS % (AUTO) 1.3 % (0.0-3.0); HEMATOCRIT 38.4 % (37.0-47.0); HEMOGLOBIN 13.3 G/DL (12.0-16.0); LYMPHOCYTES % (AUTO) 27.9 % (20.0-45.0); MEAN CORPUSCULAR VOLUME 86 FL (80-99); MONOCYTES % (AUTO) 4.1 % (1.0-10.0); PLATELET COUNT 419 K/UL (150-450); RED BLOOD COUNT 4.44 M/UL (4.20-5.40); RED CELL DISTRIBUTION WIDTH 12.3 % (11.6-14.8)
[2019-12-07 19:03] LABS: APPEARANCE,URINE SLIGHTLY CLOUDY; BILIRUBIN, URINE NEGATIVE (NEGATIVE); COLOR,URINE PALE YELLOW; GLUCOSE, URINE (UA) NEGATIVE (NEGATIVE); KETONES,URINE NEGATIVE (NEGATIVE); LEUKOCYTE ESTERASE ,URINE NEGATIVE (NEGATIVE); NITRITE,URINE NEGATIVE (NEGATIVE); PH,URINE 7 (4.5-8.0); PROTEIN,URINE NEGATIVE (NEGATIVE); UROBILINOGEN,URINE NORMAL MG/DL (0.0-1.0)
--- NOTE | 2019-12-07 19:04 | NUR ---
HAND-OFF: Report given to Lety GAN.
--- NOTE | 2019-12-07 19:05 | NUR ---
ED Nurse Note: Received report from Aislinn GAN. Pt alert na oriented, verbally responsive. Not in any distress.
[2019-12-07 19:16] LABS: ALANINE AMINOTRANSFERASE 34 U/L (12-78); ALBUMIN 3.9 G/DL (3.4-5.0); ALKALINE PHOSPHATASE 82 U/L (46-116); ANION GAP 15 mmol/L (5-15); ASPARTATE AMINO TRANSFERASE 18 U/L (15-37); BILIRUBIN,TOTAL 0.2 MG/DL (0.2-1.0); BLOOD UREA NITROGEN 13 mg/dL (7-18); CALCIUM 9.5 MG/DL (8.5-10.1); CARBON DIOXIDE 25 MMOL/L (21-32); CHLORIDE 105 MMOL/L (98-107); CREATININE 0.8 MG/DL (0.55-1.30); POTASSIUM 3.8 MMOL/L (3.5-5.1); SODIUM 145 MMOL/L (136-145)
--- NOTE | 2019-12-07 19:27 | NUR ---
ED Nurse Note: Pt was taken for CT via wc, accompanied by a tech.
[2019-12-07] MEDS ORDERED: cefTRIAXone 1 GM in NS 55 ML IVPB ONE (19:30)
--- NOTE | 2019-12-07 19:38 | NUR ---
ED Nurse Note: Pt came back from CT, not in any distress.
--- NOTE | 2019-12-07 20:00 | Diagnostic Imaging Report ---
INDICATION: Abdominal pain TECHNIQUE: Continuous helical transaxial imaging of the abdomen and pelvis was obtained from the lung bases to the pubic symphysis during intravenous contrast administration. Coronal 2-D reformats were also obtained. Study obtained in a Siemens sensation [address] Automatic Exposure Control was utilized. Total Dose length Product (DLP): 608.[address] Dose Index Volume (CTDIvol): 10.4 mGy COMPARISON: None FINDINGS: Lungs: Minimal posterior basal atelectasis demonstrated. Small hiatal hernia noted.. Liver: Unremarkable Gallbladder/biliary system: Gallbladder is absent. Cholecystectomy clips noted. No biliary ductal dilatation is seen.. Spleen: Unremarkable Pancreas: Unremarkable Kidneys/Bladder: There is mild pelvocaliectasis. This may be due to distended urinary bladder. No stones are identified within the kidneys or urinary tract.. Adrenal glands: Unremarkable Aorta/IVC: Unremarkable Bowel: Bowel gas pattern is nonobstructive. Appendix is not seen but there are no secondary signs of appendicitis identified. Few diverticula noted in the sigmoid colon. Peritoneum: There is no free fluid. An IUD is noted within the uterus. Bones: Vacuum phenomenon narrowing of L5-S1 disc demonstrated. Hypertrophied facets demonstrated within the lower lumbar spine. IMPRESSION: No acute findings. Mildly distended urinary bladder. Status post cholecystectomy. IUD Degenerative changes of the lumbar spine The CT scanner at [facility] is accredited by the [employer] and the scans are performed using dose optimization techniques as appropriate to a performed exam including Automatic Exposure control.
[2019-12-07] MEDS ORDERED: CEPHALEXIN500 M1 ORAL (20:07)
[2019-12-07 20:13] VITALS: BP 145/76
--- NOTE | 2019-12-07 20:13 | NUR ---
ED Nurse Note: Pt cleared by ERMD for discharge. DC instructions/prescription was given and explained to pt and daughter verbalized understanding of teachings. All medical deviecs such as ID band and IV line removed. Pt is AAO x4, ambulatory and left with all personal belongings. Accompanie dby daughter and son going home.
== END 2019-12-07 20:13 | disposition home or self-care (01) ==
LOC: EMR 19:53
DX: N30.01 Acute cystitis with hematuria (principal); Z90.49 Acquired absence of other specified parts of digestive tract; N83.202 Unspecified ovarian cyst, left side; N83.201 Unspecified ovarian cyst, right side
CPT/HCPCS: 36415; 74177; 80053; 81003; 81025; 83690; 84484; 85025; 87086; 93005; 96361; 96365; 96375; J0696; J2270; J2405; J7030; Q9967; Z7502; 99284

== ENCOUNTER 2019-12-10 09:46 | Emergency (ER) | payer MEDICAID ==
[~2019-12-10] VITALS: Ht 162.6 cm; Wt 89.8 kg
[~2019-12-10 09:46] MED LIST changes: +ACETAMINOPHEN-1 EAC1 ORAL; +CEPHALEXIN500 M1 ORAL; +DOCUSATE SODIU100 M2 ORAL
[2019-12-10 10:18] VITALS: BP 144/83
--- NOTE | 2019-12-10 10:21 | NUR ---
ED Nurse Note: Patient walked in to ER with a niece from home due to Rt lower abdominal pain 10/10 since last night. pt reported having Diverticulitis in history. pt aao x4 and ambulatory. skin clean and intact. calm but gramicing for pain. no cardiac or pulmonary distress noted at this time. pt is in gown. pt also reported having N/V at home but not at this moment.
[2019-12-10 10:35] LABS: APPEARANCE,URINE SLIGHTLY CLOUDY; BILIRUBIN, URINE NEGATIVE (NEGATIVE); COLOR,URINE PALE YELLOW; GLUCOSE, URINE (UA) NEGATIVE (NEGATIVE); KETONES,URINE NEGATIVE (NEGATIVE); LEUKOCYTE ESTERASE ,URINE 2+ (NEGATIVE); NITRITE,URINE NEGATIVE (NEGATIVE); PH,URINE 8 (4.5-8.0); PROTEIN,URINE NEGATIVE (NEGATIVE); UROBILINOGEN,URINE NORMAL MG/DL (0.0-1.0)
[2019-12-10 10:47] LABS: ANION GAP 13 mmol/L (5-15); BLOOD UREA NITROGEN 10 mg/dL (7-18); CARBON DIOXIDE 25 MMOL/L (21-32); CHLORIDE 104 MMOL/L (98-107); CREATININE 0.6 MG/DL (0.55-1.30); POTASSIUM 4.9 MMOL/L (3.5-5.1); SODIUM 142 MMOL/L (136-145)
[2019-12-10 10:51] LABS: ALANINE AMINOTRANSFERASE 53 U/L (12-78); ALBUMIN 3.8 G/DL (3.4-5.0); ALBUMIN/GLOBULIN RATIO 0.9 (1.0-2.7); ALKALINE PHOSPHATASE 80 U/L (46-116); ASPARTATE AMINO TRANSFERASE 63 U/L (15-37); BILIRUBIN,TOTAL 0.4 MG/DL (0.2-1.0)
[2019-12-10 11:03] LABS: BASOPHILS % (AUTO) 0.9 % (0.0-2.0); EOSINOPHILS % (AUTO) 1.4 % (0.0-3.0); HEMATOCRIT 38.1 % (37.0-47.0); HEMOGLOBIN 13.3 G/DL (12.0-16.0); LYMPHOCYTES % (AUTO) 29.3 % (20.0-45.0); MEAN CORPUSCULAR VOLUME 85 FL (80-99); NEUTROPHILS % (AUTO) 63.4 % (45.0-75.0); PLATELET COUNT 398 K/UL (150-450); RED BLOOD COUNT 4.46 M/UL (4.20-5.40); WHITE BLOOD COUNT 8.7 K/UL (4.8-10.8)
--- NOTE | 2019-12-10 11:55 | Emergency Room Report ---
History of Present Illness General Chief Complaint: Abdominal Pain Source: Patient Present Illness HPI Patient is a 44-year-old female past medical history of diverticulitis who presents to the ER complaining of abdominal pain for the past several days. She is accompanied by her daughter. Patient denies any fever or chills. She denies any dysuria or hematuria. She denies any diarrhea but complains of constipation for the past 5 days. She denies any recent travel. She denies any chest pain or shortness of breath. Allergies: Coded Allergies: No Known Allergies (Unverified , 04/10/17) Patient History Social History: Denies: smoking, alcohol use, drug use Now: No Reviewed Nursing Documentation: PMH: Agreed; PSxH: Agreed Nursing Documentation-PMH Past Medical History: No Stated History Review of Systems All Other Systems: negative except mentioned in HPI Physical Exam Vital Signs Date Time Temp Pulse Resp B/P (MAP) Pulse Ox O2 Delivery O2 Flow Rate FiO2 12/10/19 09:51 98.1 69 18 144/83 (103) 99 Room Air Sp02 EP Interpretation: reviewed, normal General Appearance: no apparent distress, alert, GCS 15, non-toxic Head: normocephalic, atraumatic Eyes: bilateral eye normal inspection, bilateral eye PERRL ENT: hearing grossly normal, normal pharynx, no angioedema, normal voice Neck: full range of motion, supple/symm/no masses Respiratory: chest non-tender, lungs clear, normal breath sounds, speaking full sentences Cardiovascular #1: regular rate, rhythm, no edema Gastrointestinal: normal bowel sounds, soft, non-distended, no guarding, no rebound, other - Right lower quadrant tenderness to palpation with no guarding or rebound Rectal: deferred Genitourinary: normal inspection, no CVA tenderness Musculoskeletal: back normal, normal range of motion, calf tenderness, gait/ station normal, non-tender Neurologic: alert, motor strength/tone normal, oriented x3, sensory intact, responsive, speech normal Psychiatric: judgement/insight normal, memory normal, mood/affect normal, no suicidal/homicidal ideation Skin: no rash Lymphatic: no adenopathy Medical Decision Making Diagnostic Impression: Primary Impression: Abdominal pain Additional Impression: UTI (urinary tract infection) ER Course Patient's labs demonstrate UTI. Patient is afebrile, nontoxic-appearing and has normal white blood cell count. CT demonstrates no acute intra-abdominal pathology. Patient started on Macrobid. After discussing risks and benefits of further diagnostics, treatment plans, as well as indications for and risks of admission, the patient is agreeable to being discharged home. I have explained that their evaluation and treatment in the emergency department today is an important step towards them achieving better health but that their evaluation today is not intended to replace further evaluation and treatment by a physician in their local clinic. I have explained that while the current findings suggest no immediate life threatening emergency they will require further evaluation and treatment by a physician of their choice in their area. They understand that it will be necessary for them to review the final reports of their ED visit with their clinic physician. We have reviewed indications for return to the Emergency Department. I have explained that additional time may need to pass and/or additional testing as an outpatient may be necessary before a definitive diagnosis can be made. They tell me they are willing to follow up as instructed within the timeframe I recommend. They appear to understand what we discussed. Additionally they understand that if they are unable to be seen by an outpatient physician they are welcome, and in fact should, return to the Emergency Department for a repeat evaluation. The patient is stable at time of discharge. Last Vital Signs Date Time Temp Pulse Resp B/P (MAP) Pulse Ox O2 Delivery O2 Flow Rate FiO2 12/10/19 10:18 98.1 69 18 144/83 99 Room Air Disposition: HOME, SELF-CARE Condition: Stable Scripts Ondansetron* (ZOFRAN*) 4 Mg Tablet 4 MG ORAL Q6H PRN for Nausea & Vomiting, #10 TAB Prov: Karol Wayne M.D. 12/10/19 Docusate Sodium* (COLACE*) 100 Mg Capsule 100 MG ORAL DAILY for 30 Days, CAP Prov: Karol Wayne M.D. 12/10/19 Nitrofurantoin Monohyd/M-Cryst* (MACROBID 100 MG*) 100 Mg Capsule 100 MG ORAL EVERY 12 HOURS for 7 Days, CAP Prov: Karol Wayne M.D. 12/10/19 Additional Instructions: Patient discharged in stable improved condition with outpatient follow-up and strict return precautions Karol Wayne M.D. Dec 10, 2019 11:55
--- NOTE | 2019-12-10 12:02 | NUR ---
ED Nurse Note: Called radiology and they said they will be here shortly to take pt to CT
--- NOTE | 2019-12-10 12:16 | NUR ---
ED Nurse Note: Pt in radiology
--- NOTE | 2019-12-10 12:53 | Diagnostic Imaging Report ---
INDICATION: Abdominal pain TECHNIQUE: Continuous helical transaxial imaging of the abdomen and pelvis was obtained from the lung bases to the pubic symphysis. No intravenous contrast was administered. Coronal 2-D reformats were also obtained. Automatic Exposure Control was utilized. Total Dose length Product (DLP): 537.[address] Dose Index Volume (CTDIvol): 9.9 mGy Comparison: 12/07/2019 FINDINGS: Patient had a CT 3 days ago which was negative for any acute findings. Lungs: The visualized lung bases are clear. Liver: Unremarkable. On today's examination, there is interposition of bowel between the liver and anterior part of the diaphragm, which is a normal variant. Gallbladder/biliary system: Cholecystectomy noted. Spleen: Unremarkable Pancreas: Unremarkable Kidneys/Bladder: There is a questionable 1 mm nonobstructive stone in the left kidney. There is no hydronephrosis. This is difficult to see on the last study which was done with intravenous contrast material.. Adrenal glands: Unremarkable Bowel: Appendix is normal. Bowel gas pattern is nonobstructive. Aorta/IVC: Unremarkable Peritoneum: IUD noted within the uterus. There is no free fluid within the abdomen or pelvis.. Bones: Degenerative changes at L5-S1 again noted. IMPRESSION: Question of a tiny nonobstructive stone in the left kidney. Correlate clinically. Post cholecystectomy IUD Degenerative changes of the spine. Normal appendix Chilaiditi syndrome Note: Evaluation of solid organs is limited on non contrast imaging. The CT scanner at [facility] is accredited by the [employer] and the scans are performed using dose optimization techniques as appropriate to a performed exam including Automatic Exposure control.
[2019-12-10] MEDS ORDERED: ZOFRAN4 M3 ORAL (13:23)
[2019-12-10] MEDS ORDERED: COLACE100 MG ORAL (13:23)
[2019-12-10] MEDS ORDERED: NITROFURANTOIN100 M2 ORAL (13:23)
[2019-12-10 13:36] VITALS: BP 139/82
--- NOTE | 2019-12-10 13:37 | NUR ---
ER DISCHARGE NOTE: Patient is cleared to be discharged per ERMD DR WILLSON, pt is aox4, on room air, with stable vital signs. pt was given dc and prescription instructions, pt was able to verbalize understanding, pt id band and iv site removed without complications. pt is able to ambulate with steady gait. pt took all belongings.
== END 2019-12-10 13:36 | disposition home or self-care (01) ==
LOC: EMR 10:10
DX: R10.9 Unspecified abdominal pain (principal); N39.0 Urinary tract infection, site not specified
CPT/HCPCS: 36415; 74176; 80053; 81003; 81025; 83690; 83735; 85025; 96360; 96361; J7030; Z7502; 99284

== ENCOUNTER 2019-12-30 19:47 | Emergency (ER) | payer MEDICAID ==
[~2019-12-30] VITALS: Ht 162.6 cm; Wt 88.0 kg
[~2019-12-30 19:47] MED LIST changes: +COLACE100 MG ORAL; +NITROFURANTOIN100 M2 ORAL; +ZOFRAN4 M3 ORAL
[2019-12-30 20:00] VITALS: BP 159/92
--- NOTE | 2019-12-30 20:00 | NUR ---
ED Nurse Note: Pt walkd into ED for c/o pubic pain onset three days ago. Pt states pain is aching in nature and non radiating. Pt also had 1x episode of vomiting today. Pt is aaox4, no respiratory or cardiac distress noted. Pt placed on diagnostic cardiac sonographer and put into gown. Will continue to monitor.
[2019-12-30] MEDS ORDERED: Morphine Sulfate 4mg/ml Inj (IV USE ONLY) IVP ONE (20:15)
--- NOTE | 2019-12-30 20:36 | Emergency Room Report ---
History of Present Illness General Chief Complaint: Abdominal Pain Source: Patient Present Illness HPI 44-year-old female presents ED for evaluation. Planing of abdominal pain for the last 3 days. Pain is lower, sharp, 8 out of 10, nonradiating. Notes nausea and vomiting today. Denies fevers or chills. Denies diarrhea. Denies sick contacts or recent travel. No other aggravating relieving factors. Denies any other associated symptoms Allergies: Coded Allergies: No Known Allergies (Unverified , 04/10/17) COVID-19 Screening Contact w/high risk pt: No Recent Travel to affected area: No Experienced COVID-19 symptoms?: No Patient History Past Medical History: none Past Surgical History: none Pertinent Family History: none Social History: Denies: smoking, alcohol use, drug use Last Menstrual Period: 12/13/19 Now: No Immunizations: UTD Reviewed Nursing Documentation: PMH: Agreed; PSxH: Agreed Nursing Documentation-PMH Past Medical History: No Stated History Review of Systems All Other Systems: negative except mentioned in HPI Physical Exam Vital Signs Date Time Temp Pulse Resp B/P (MAP) Pulse Ox O2 Delivery O2 Flow Rate FiO2 12/30/19 19:55 98.2 93 19 159/92 (114) 96 Sp02 EP Interpretation: reviewed, normal General Appearance: alert, GCS 15, non-toxic, mild distress Head: normocephalic, atraumatic Eyes: bilateral eye normal inspection, bilateral eye PERRL ENT: hearing grossly normal, normal pharynx, no angioedema, normal voice Neck: full range of motion, supple/symm/no masses Respiratory: chest non-tender, lungs clear, normal breath sounds, speaking full sentences Cardiovascular #1: regular rate, rhythm, no edema Cardiovascular #2: 2+ carotid (R), 2+ carotid (L), 2+ radial (R), 2+ radial (L) , 2+ dorsalis pedis (R), 2+ dorsalis pedis (L) Gastrointestinal: normal bowel sounds, soft, non-distended, no guarding, no rebound, tenderness - suprapubic Rectal: deferred Genitourinary: normal inspection, no CVA tenderness Musculoskeletal: back normal, normal range of motion, gait/station normal, non- tender Neurologic: alert, motor strength/tone normal, oriented x3, sensory intact, responsive, speech normal Psychiatric: judgement/insight normal, memory normal, mood/affect normal, no suicidal/homicidal ideation Reflexes: 3+ bicep (R), 3+ bicep (L), 3+ tricep (R), 3+ tricep (L), 3+ knee (R) , 3+ knee (L) Skin: no rash Lymphatic: no adenopathy Medical Decision Making Diagnostic Impression: Primary Impression: UTI (urinary tract infection) Qualified Codes: N39.0 - Urinary tract infection, site not specified; R31.9 - Hematuria, unspecified Additional Impression: Abdominal pain Qualified Codes: R10.9 - Unspecified abdominal pain ER Course Hospital Course 44 yo F presents with lower abd pain Differential diagnosis includes- cystitis, UTI, ovarian cyst, torsion Clinical course Patient placed on stretcher. After initial history and physical I ordered labs , IV fluids, pain medications and Pelvic US Labs - no leukocytosis, electrolytes ok, LFTs normal, UA + bacteria Pelvic US - no acute pathology I discussed findings with patient. On reassessment pain improved. Given antibiotics. Safe for discharge with close outpatient follow-up. states she has a PMD I feel this is a highly complex case requiring extensive working including EKG/ Rhythm strip, Xray/CT/US, Blood/urine lab work, repeat exams while in ED, and administration of strong opiates/narcotics for pain control, admission to hospital or close patient follow up. Diagnosis - UTI, abdominal pain Stable and discharged to home with Rx Motrin, Keflex, Zofran, Pyridium. Followup with PMD. Return to ED if symptoms recur or worsen Labs Test 12/30/19 20:20 White Blood Count 11.3 K/UL (4.8-10.8) Red Blood Count 4.29 M/UL (4.20-5.40) Hemoglobin 12.6 G/DL (12.0-16.0) Hematocrit 37.7 % (37.0-47.0) Mean Corpuscular Volume 88 FL (80-99) Mean Corpuscular Hemoglobin 29.3 PG (27.0-31.0) Mean Corpuscular Hemoglobin Concent 33.3 G/DL (32.0-36.0) Red Cell Distribution Width 13.1 % (11.6-14.8) Platelet Count 379 K/UL (150-450) Mean Platelet Volume 7.3 FL (6.5-10.1) Neutrophils (%) (Auto) 60.1 % (45.0-75.0) Lymphocytes (%) (Auto) 32.4 % (20.0-45.0) Monocytes (%) (Auto) 4.9 % (1.0-10.0) Eosinophils (%) (Auto) 1.5 % (0.0-3.0) Basophils (%) (Auto) 1.0 % (0.0-2.0) Urine Color Pale yellow Urine Appearance Slightly cloudy Urine pH 6 (4.5-8.0) Urine Specific [place] 1.020 (1.005-1.035) Urine Protein Negative (NEGATIVE) Urine Glucose (UA) Negative (NEGATIVE) Urine Ketones Negative (NEGATIVE) Urine Blood 4+ (NEGATIVE) Urine Nitrite Negative (NEGATIVE) Urine Bilirubin Negative (NEGATIVE) Urine Urobilinogen Normal MG/DL (0.0-1.0) Urine Leukocyte Esterase 2+ (NEGATIVE) Urine RBC 5-10 /HPF (0 - 2) Urine WBC 10-15 /HPF (0 - 2) Urine Squamous Epithelial Cells Many /LPF (NONE/OCC) Urine Bacteria Moderate /HPF (NONE) Urine HCG, Qualitative Negative (NEGATIVE) Sodium Level 139 MMOL/L (136-145) Potassium Level 4.0 MMOL/L (3.5-5.1) Chloride Level 105 MMOL/L (98-107) Carbon Dioxide Level 24 MMOL/L (21-32) Anion Gap 11 mmol/L (5-15) Blood Urea Nitrogen 16 mg/dL (7-18) Creatinine 0.8 MG/DL (0.55-1.30) Estimat Glomerular Filtration Rate > 60 mL/min (>60) Glucose Level 104 MG/DL (74-106) Calcium Level 9.1 MG/DL (8.5-10.1) Total Bilirubin 0.2 MG/DL (0.2-1.0) Aspartate Amino Transf (AST/SGOT) 33 U/L (15-37) Alanine Aminotransferase (ALT/SGPT) 69 U/L (12-78) Alkaline Phosphatase 78 U/L (46-116) Total Protein 7.1 G/DL (6.4-8.2) Albumin 3.7 G/DL (3.4-5.0) Globulin 3.4 g/dL Albumin/Globulin Ratio 1.1 (1.0-2.7) Lipase 116 U/L (73-393) CT/MRI/US Diagnostic Results CT/MRI/US Diagnostic Results : Imaging Test Ordered: Pelvic US Impression Procedure: US Transvaginal (Non ) Indication:Lower abdominal and pelvic pain Technique: Grayscale and duplex Doppler imaging of the pelvis performed utilizing a transabdominal and endovaginal scan. Comparison: None Findings: The size, contour, and configuration of the uterus is within normal limits. Endometrium is partially obscured by intrauterine device. The ovaries appear normal bilaterally with good dopplerable blood flow. Some follicles noted. There is no significant free fluid identified. Uterus measurement 9.2 x 5.5 x 4.7 cm. Right ovary 3.7 x 3.3 x 1.6 cm. Left ovary 3.8 x 3 x 2.3 cm. IMPRESSION: Intrauterine device. No acute findings. Last Vital Signs Date Time Temp Pulse Resp B/P (MAP) Pulse Ox O2 Delivery O2 Flow Rate FiO2 12/30/19 19:55 98.2 93 19 159/92 (114) 96 Status: improved Disposition: HOME, SELF-CARE Condition: Stable Scripts Ondansetron Odt* (ZOFRAN ODT*) 4 Mg Tab.rapdis 4 MG BC EVERY 6 HOURS PRN for Nausea & Vomiting, #10 TAB 0 Refills Prov: Tj Wolf MD 12/30/19 Acetaminophen* (TYLENOL EXTRA STRENGTH*) 500 Mg Tablet 500 MG ORAL Q8H PRN for Prn Headache/Temp > 101, #30 TAB 0 Refills Prov: Tj Wolf MD 12/30/19 Phenazopyridine Hcl* (PYRIDIUM*) 100 Mg Tablet 100 MG ORAL THREE TIMES A DAY for 3 Days, TAB Prov: Tj Wolf MD 12/30/19 Cephalexin* (KEFLEX*) 500 Mg Capsule 500 MG ORAL EVERY 6 HOURS for 7 Days, CAP Prov: Tj Wolf MD 12/30/19 Referrals: NON PHYSICIAN (PCP) Tj Wolf MD Dec 30, 2019 20:36
[2019-12-30 20:48] LABS: EOSINOPHILS % (AUTO) 1.5 % (0.0-3.0); HEMATOCRIT 37.7 % (37.0-47.0); HEMOGLOBIN 12.6 G/DL (12.0-16.0); LYMPHOCYTES % (AUTO) 32.4 % (20.0-45.0); MEAN CORPUSCULAR VOLUME 88 FL (80-99); MONOCYTES % (AUTO) 4.9 % (1.0-10.0); NEUTROPHILS % (AUTO) 60.1 % (45.0-75.0); PLATELET COUNT 379 K/UL (150-450); RED BLOOD COUNT 4.29 M/UL (4.20-5.40); RED CELL DISTRIBUTION WIDTH 13.1 % (11.6-14.8); WHITE BLOOD COUNT 11.3 K/UL (4.8-10.8)
[2019-12-30 20:49] LABS: APPEARANCE,URINE SLIGHTLY CLOUDY; BILIRUBIN, URINE NEGATIVE (NEGATIVE); COLOR,URINE PALE YELLOW; GLUCOSE, URINE (UA) NEGATIVE (NEGATIVE); KETONES,URINE NEGATIVE (NEGATIVE); LEUKOCYTE ESTERASE ,URINE 2+ (NEGATIVE); NITRITE,URINE NEGATIVE (NEGATIVE); PH,URINE 6 (4.5-8.0); PROTEIN,URINE NEGATIVE (NEGATIVE); UROBILINOGEN,URINE NORMAL MG/DL (0.0-1.0)
[2019-12-30 21:11] LABS: ANION GAP 11 mmol/L (5-15); BLOOD UREA NITROGEN 16 mg/dL (7-18); CALCIUM 9.1 MG/DL (8.5-10.1); CARBON DIOXIDE 24 MMOL/L (21-32); CHLORIDE 105 MMOL/L (98-107); CREATININE 0.8 MG/DL (0.55-1.30); SODIUM 139 MMOL/L (136-145)
[2019-12-30] MEDS ORDERED: cefTRIAXone 1 GM in NS 55 ML IVPB ONE (21:15)
[2019-12-30] MEDS ORDERED: Ketorolac 30mg Inj IV ONE (21:15)
[2019-12-30 21:16] LABS: ALANINE AMINOTRANSFERASE 69 U/L (12-78); ALBUMIN 3.7 G/DL (3.4-5.0); ALBUMIN/GLOBULIN RATIO 1.1 (1.0-2.7); ALKALINE PHOSPHATASE 78 U/L (46-116); ASPARTATE AMINO TRANSFERASE 33 U/L (15-37); BILIRUBIN,TOTAL 0.2 MG/DL (0.2-1.0)
--- NOTE | 2019-12-30 21:18 | Diagnostic Imaging Report ---
Indication:Lower abdominal and pelvic pain Technique: Grayscale and duplex Doppler imaging of the pelvis performed utilizing a transabdominal and endovaginal scan. Comparison: None Findings: The size, contour, and configuration of the uterus is within normal limits. Endometrium is partially obscured by intrauterine device. The ovaries appear normal bilaterally with good dopplerable blood flow. Some follicles noted. There is no significant free fluid identified. Uterus measurement 9.2 x 5.5 x 4.7 cm. Right ovary 3.7 x 3.3 x 1.6 cm. Left ovary 3.8 x 3 x 2.3 cm. IMPRESSION: Intrauterine device. No acute findings.
[2019-12-30] MEDS ORDERED: TYLENOL EXTRA500 MG ORAL (21:23)
[2019-12-30] MEDS ORDERED: ONDANSETRON ODT4 MG BC (21:23)
[2019-12-30] MEDS ORDERED: PHENAZOPYRIDIN100 MG ORAL (21:23)
[2019-12-30] MEDS ORDERED: CEPHALEXIN500 MG ORAL (21:23)
--- NOTE | 2019-12-30 21:30 | NUR ---
ED Nurse Note: Pt states she feels slightly better. 8/10 pain. ERMD plan to DC pt home with prescriptions. No acute distress noted.
[2019-12-30 21:50] VITALS: BP 122/71
--- NOTE | 2019-12-30 21:50 | NUR ---
ER DISCHARGE NOTE: Patient is cleared to be discharged per ERMD, pt is aox4, on room air, with stable vital signs. pt was given dc and prescription instructions, pt was able to verbalize understanding, pt id band and iv site removed without complications. pt is able to ambulate with steady gait. pt took all belongings.
== END 2019-12-30 21:50 | disposition home or self-care (01) ==
LOC: EMR 20:15
DX: N39.0 Urinary tract infection, site not specified (principal); R31.9 Hematuria, unspecified; R10.9 Unspecified abdominal pain; R11.2 Nausea with vomiting, unspecified
CPT/HCPCS: 36415; 76830; 76856; 80053; 81003; 81025; 83690; 85025; 87086; 87181; 96365; 96375; J0696; J1885; J2270; J7040; Z7502; 99284

== ENCOUNTER 2020-02-08 00:51 | Emergency (ER) | payer MEDICAID ==
[~2020-02-08] VITALS: Ht 162.6 cm; Wt 86.2 kg
[~2020-02-08 00:51] MED LIST changes: +CEPHALEXIN500 MG ORAL; +PHENAZOPYRIDIN100 MG ORAL; +TYLENOL EXTRA500 MG ORAL
[2020-02-08 01:02] VITALS: BP 150/54
--- NOTE | 2020-02-08 01:02 | NUR ---
ED Nurse Note: Patient walked in to ED from home c/o generalized weakness with headache x 1 week. Report nausea and vomiting. Pt took tylenol for pain but no relief. Afebrile. Not in any distress. 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 ERMD at bedside.
--- NOTE | 2020-02-08 01:23 | NUR ---
ED Nurse Note: IV line established. Blood and urine specimen collected and sent to lab.
--- NOTE | 2020-02-08 01:25 | Emergency Room Report ---
History of Present Illness General Chief Complaint: Generalized Weakness Source: Patient Present Illness HPI This is a 44-year-old female with no past medical history. She presents with chief complaint of generalized weakness with headache. Onset for about a week. No relief with Tylenol. Pain is throbbing in nature. 8 out of 10. She has nausea but started vomiting today. Denies any fever or chills but felt warm. Slight congestion. No chest pain. Worse with exertion. Better with rest. No focal deficit. Allergies: Coded Allergies: No Known Allergies (Unverified , 04/10/17) COVID-19 Screening Contact w/high risk pt: No Recent Travel to affected area: No Experienced COVID-19 symptoms?: No Patient History Past Medical History: see triage record, old chart reviewed Past Surgical History: none Pertinent Family History: none Social History: Denies: smoking Now: No Immunizations: other Reviewed Nursing Documentation: PMH: Agreed; PSxH: Agreed Nursing Documentation-PMH Past Medical History: No Stated History Review of Systems Constitutional: Reports: weakness Eye: Denies: eye pain, blurred vision ENT: Denies: ear pain, nose congestion, throat swelling Respiratory: Denies: cough, shortness of breath Cardiovascular: Denies: chest pain, palpitations Gastrointestinal: Reports: nausea, vomiting; Denies: abdominal pain, diarrhea Musculoskeletal: Denies: back pain, joint pain Skin: Denies: rash Neurological: Reports: headache; Denies: numbness Endocrine: Denies: increased thirst, increased urine Hematologic/Lymphatic: Denies: easy bruising All Other Systems: negative except mentioned in HPI Physical Exam Vital Signs Date Time Temp Pulse Resp B/P (MAP) Pulse Ox O2 Delivery O2 Flow Rate FiO2 02/08/20 00:55 98.2 88 18 174/83 (113) 96 Room Air Vitals with high blood pressure Sp02 EP Interpretation: reviewed, normal General Appearance: well appearing, no apparent distress, alert Head: normocephalic, atraumatic Eyes: bilateral eye PERRL, bilateral eye EOMI ENT: hearing grossly normal, normal pharynx Neck: full range of motion, supple, no meningismus Respiratory: chest non-tender, lungs clear, normal breath sounds Cardiovascular #1: regular rate, rhythm, no murmur Gastrointestinal: normal bowel sounds, non tender, no mass, no organomegaly, no bruit, non-distended Musculoskeletal: back normal, normal range of motion, gait/station normal Neurologic: alert, oriented x3 Psychiatric: mood/affect normal Skin: other - Warm to the touch Medical Decision Making Diagnostic Impression: Primary Impression: Headache Qualified Codes: G44.209 - Tension-type headache, unspecified, not intractable Additional Impression: Episode of generalized weakness ER Course This patient was evaluated in the context of the global COVID-19 pandemic, which necessitated consideration that the patient might be at risk for infection with the [id number]-3 virus that causes COVID-19. Institutional protocols and algorithms that pertain to the evaluation of patients at risk for COVID-19 and the state of rapid change based on information released by multiple regulatory bodies including the CDC and federal and state organizations. These policies and algorithms were followed during the patient' s care in the ED. Patient presents with headache and generalized weakness. COVID test sent because she may have exposure. She felt better now. Will discharge home. CT scan negative for bleed, neoplastic process or CVA. Rhythm Strip Diag. Results EP Interpretation: yes Rate: 70 Rhythm: NSR, no PVC's, no ectopy CT/MRI/US Diagnostic Results CT/MRI/US Diagnostic Results : Imaging Test Ordered: CT head Impression Read by radiologist. Negative. Last Vital Signs Date Time Temp Pulse Resp B/P (MAP) Pulse Ox O2 Delivery O2 Flow Rate FiO2 02/08/20 01:02 88 18 Room Air 02/08/20 01:02 98.2 150/54 96 Status: improved Disposition: HOME, SELF-CARE Condition: Stable Scripts Ibuprofen* (MOTRIN*) 600 Mg Tablet 600 MG ORAL Q6H PRN for For Pain, #30 TAB 0 Refills Prov: Carlito Castellanos MD 02/08/20 Referrals: NOT CHOSEN IPA/,REFERRING (PCP) Additional Instructions: Follow-up with your doctor in 7 days. Return if symptoms worsen. A COVID test was sent. We will call you with results. Carlito Castellanos MD February 08, 2020 01:25
[2020-02-08 01:29] LABS: APPEARANCE,URINE CLEAR; BILIRUBIN, URINE NEGATIVE (NEGATIVE); COLOR,URINE PALE YELLOW; GLUCOSE, URINE (UA) NEGATIVE (NEGATIVE); KETONES,URINE NEGATIVE (NEGATIVE); LEUKOCYTE ESTERASE ,URINE NEGATIVE (NEGATIVE); NITRITE,URINE NEGATIVE (NEGATIVE); PH,URINE 7 (4.5-8.0); PROTEIN,URINE NEGATIVE (NEGATIVE); UROBILINOGEN,URINE NORMAL MG/DL (0.0-1.0)
[2020-02-08] MEDS ORDERED: Ketorolac 30mg Inj IV ONE (01:30)
[2020-02-08] MEDS ORDERED: Metoclopramide 10mg/2ml Inj IVP ONE (01:30)
[2020-02-08 01:40] LABS: BASOPHILS % (AUTO) 0.6 % (0.0-2.0); EOSINOPHILS % (AUTO) 1.4 % (0.0-3.0); HEMATOCRIT 36.1 % (37.0-47.0); HEMOGLOBIN 12.6 G/DL (12.0-16.0); LYMPHOCYTES % (AUTO) 24.1 % (20.0-45.0); MEAN CORPUSCULAR VOLUME 84 FL (80-99); MONOCYTES % (AUTO) 5.3 % (1.0-10.0); NEUTROPHILS % (AUTO) 68.5 % (45.0-75.0); PLATELET COUNT 374 K/UL (150-450); RED BLOOD COUNT 4.27 M/UL (4.20-5.40); RED CELL DISTRIBUTION WIDTH 11.9 % (11.6-14.8); WHITE BLOOD COUNT 13.8 K/UL (4.8-10.8)
[2020-02-08 01:49] LABS: ANION GAP 8 mmol/L (5-15); BLOOD UREA NITROGEN 10 mg/dL (7-18); CALCIUM 8.9 MG/DL (8.5-10.1); CARBON DIOXIDE 28 MMOL/L (21-32); CHLORIDE 107 MMOL/L (98-107); CREATININE 0.8 MG/DL (0.55-1.30); SODIUM 143 MMOL/L (136-145)
[2020-02-08 01:54] LABS: ALANINE AMINOTRANSFERASE 46 U/L (12-78); ALBUMIN 3.5 G/DL (3.4-5.0); ALBUMIN/GLOBULIN RATIO 0.9 (1.0-2.7); ALKALINE PHOSPHATASE 82 U/L (46-116); ASPARTATE AMINO TRANSFERASE 16 U/L (15-37); BILIRUBIN,TOTAL 0.2 MG/DL (0.2-1.0)
[2020-02-08 01:57] VITALS: BP 110/52
--- NOTE | 2020-02-08 02:30 | NUR ---
ED Nurse Note: Pt was taken for CT via fior, accompanied by a tech.
--- NOTE | 2020-02-08 02:46 | Diagnostic Imaging Report ---
EXAM: CT Head Without Intravenous Contrast CLINICAL HISTORY: PAIN TECHNIQUE: Axial computed tomography images of the head/brain without intravenous contrast. CTDI is 53.4 mGy and DLP is 1072.2 mGy-cm. One or more of the following dose reduction techniques were used: automated exposure control, adjustment of the mA and/or kV according to patient size, use of iterative reconstruction technique. COMPARISON: 04/10/2017. FINDINGS: Brain: Unremarkable. No hemorrhage. No significant white matter disease. No edema. Ventricles: Unremarkable. No ventriculomegaly. Bones/joints: Unremarkable. No acute fracture. Soft tissues: Unremarkable. Sinuses: Unremarkable as visualized. No acute sinusitis. Mastoid air cells: Unremarkable as visualized. No mastoid effusion. IMPRESSION: Normal CT brain. Specifically, no acute intracranial hemorrhage or space-occupying lesion.
--- NOTE | 2020-02-08 02:54 | NUR ---
ED Nurse Note: Pt came back from CT, not in any distress.
[2020-02-08] MEDS ORDERED: IBUPROFEN600 M1 ORAL (03:08)
[2020-02-08 03:16] VITALS: BP 111/64
--- NOTE | 2020-02-08 03:16 | NUR ---
ED Nurse Note: Pt cleared byERMD for discharge. DC instructions/prescription was given and explained to pt and verbalized understanding of teachings. All medical deviecs such as ID band and IV line removed. Pt is AAO x4, ambulatory and left with all personal belongings.
== END 2020-02-08 03:16 | disposition home or self-care (01) ==
LOC: EMR 01:13
DX: G44.209 Tension-type headache, unspecified, not intractable (principal); R53.1 Weakness
CPT/HCPCS: 36415; 70450; 80053; 81001; 81025; 85025; 87635; J0360; J1885; J2765; J7030; Z7502; 99284

== ENCOUNTER 2020-05-06 21:13 | Emergency (ER) | payer MEDICAID ==
[~2020-05-06] VITALS: Ht 162.6 cm; Wt 89.4 kg
[~2020-05-06 21:13] MED LIST changes: +IBUPROFEN600 M1 ORAL
--- NOTE | 2020-05-06 21:20 | NUR ---
ED Nurse Note: WALKED IN TO ED C/O LT EYE IRRITATION AND TINGLING ACCOMPANIED BY ITCHINESS AND BURNING SENSATION ONSET 05/03 WITH UNK CAUSE. PT STATES IRRITATION INITIALLY OCCURED IN RT EYE BUT MOVED TO LT. DENIES BLURRY VISION. DOES NOT APPEAR RED OR EDEMATOUS. NO DISCHARGE NOTED. VSS, NAD, AAOX4, AMBULATORY, ERMD AT BEDSIDE
[2020-05-06 21:32] VITALS: BP 137/75
[2020-05-06] MEDS ORDERED: BENADRYL25 MG ORAL (21:34)
--- NOTE | 2020-05-06 21:34 | Emergency Room Report ---
History of Present Illness General Chief Complaint: Eye Problems Source: Patient Present Illness HPI 44-year-old female presents with swelling of the left eyelid, and redness, and itchiness x3 days no pain she endorses itchiness no aggravating relieving factors severity is mild, constant patient states she has something similar occurred to the right eyelid 3 weeks to resolve. Patient presents for evaluation and treatment. Patient denies any visual changes no fevers no chills no pus drainage Allergies: Coded Allergies: No Known Allergies (Unverified , 04/10/17) COVID-19 Screening Contact w/high risk pt: No Recent Travel to affected area: No Experienced COVID-19 symptoms?: No COVID-19 Testing performed FRUIT SHIPPER: No Patient History Past Medical History: see triage record Last Menstrual Period: 04/2020 Reviewed Nursing Documentation: PMH: Agreed; PSxH: Agreed Nursing Documentation-PMH Past Medical History: No Stated History Review of Systems All Other Systems: negative except mentioned in HPI Physical Exam Vital Signs Date Time Temp Pulse Resp B/P (MAP) Pulse Ox O2 Delivery O2 Flow Rate FiO2 05/06/20 21:15 97.3 69 16 148/69 (95) 97 Room Air General Appearance: well appearing, no apparent distress Head: normocephalic, atraumatic Eyes: left eye lid inflammation; bilateral eye PERRL, bilateral eye EOMI ENT: hearing grossly normal, normal voice Neck: full range of motion, supple Respiratory: no respiratory distress, speaking full sentences Neurologic: alert, normal gait Psychiatric: mood/affect normal Skin: no rash Medical Decision Making Diagnostic Impression: Primary Impression: [place] left upper eyelid ER Course 44-year-old female presents with [place]'s on of the left upper eyelid, patient was instructed to do warm compresses 40 times a day, will provide patient with Benadryl for itching patient may follow-up with PCP or digital marketing assistant disposition home with return precautions symptomatic care Last Vital Signs Date Time Temp Pulse Resp B/P (MAP) Pulse Ox O2 Delivery O2 Flow Rate FiO2 05/06/20 21:15 97.3 69 16 148/69 (95) 97 Room Air Disposition: HOME, SELF-CARE Condition: Stable Scripts Diphenhydramine Hcl* (BENADRYL*) 25 Mg Capsule 25 MG ORAL Q6H PRN for Itching, #28 CAP Prov: Severo Weiner MD 05/06/20 Referrals: [facility] Marley Richey. [facility] Patient Instructions: Krunal Additional Instructions: The patient was provided with discharge instructions, notified to follow-up with a primary care doctor and or specialist in the next 24-48 hours, and to return to the ED if they have worsening of their symptoms. Please note that this report is being documented using DRAGON technology. This can lead to erroneous entry secondary to incorrect interpretation by the dictating instrument. Severo Weiner MD May 06, 2020 21:34
--- NOTE | 2020-05-06 21:35 | NUR ---
ER DISCHARGE NOTE: Patient is cleared to be discharged per ERMD, pt is aox4, on room air, with stable vital signs. pt was given dc and prescription instructions, pt was able to verbalize understanding, pt id band removed without complications. pt is able to ambulate with steady gait. pt took all belongings.
== END 2020-05-06 21:35 | disposition home or self-care (01) ==
LOC: EMR 21:30
DX: H44.3 Other and unspecified degenerative disorders of globe (principal)
CPT/HCPCS: 99282